=== PATIENT | female | born 1995 | race Caucasian/White ===

== ENCOUNTER 2023-07-16 16:02 | Emergency (ER) | payer OTHER | END 2023-07-16 16:55 | disposition left against medical advice (07) | LOC: ER 16:08 | DX: M54.9 Dorsalgia, unspecified (principal); Z53.21 Procedure and treatment not carried out due to patient leaving prior to being seen by health care provider ==

== ENCOUNTER 2024-04-22 04:36 | Emergency (ER) | payer OTHER ==
[2024-04-24] MEDS ORDERED: LORA-258 PO (12:58)
== END 2024-04-22 05:55 | disposition left against medical advice (07) ==
LOC: ER 04:38
DX: R11.2 Nausea with vomiting, unspecified (principal); Z53.21 Procedure and treatment not carried out due to patient leaving prior to being seen by health care provider